=== PATIENT | male | born 1985 | race Hispanic/Latino ===

== ENCOUNTER 2016-10-21 18:58 | Emergency (ER) | payer OTHER ==
[2016-10-21] MEDS ORDERED: KETOROLAC 30 MG/ML VIAL (J1885) As Ordered ONE (19:33)
[2016-10-21] MEDS ORDERED: diphenhydrAMINE INJ 50MG/ML VIAL (J1200) As Ordered ONE (19:33)
[2016-10-21] MEDS ORDERED: methylPREDNISolone INJ 125 MG/2 ML VIAL (J2930) As Ordered ONE (19:33)
[2016-10-21 20:01] LABS: BASO % 0.4 % (0.0-1.0); EOS # 0.2 K/mm3 (0.0-0.50); EOS % 2.1 % (0.0-3.0); LARGE UNSTAINED CELL # 0.1 K/mm3 (0.0-0.4); LARGE UNSTAINED CELL % 1.2 % (0.0-4.0); LYMPH # 1.9 K/mm3 (1.5-6.5); LYMPH % 20.5 % (24.0-44.0); MEAN CORPUSCULAR HEMOGLOBIN 32.2 pg (27.0-33.0); MEAN CORPUSCULAR HGB CONC 36.1 g/dl (32.0-36.5); MEAN CORPUSCULAR VOLUME 89.1 fl (80.0-96.0); MONO # 0.6 K/mm3 (0.0-0.8); MONO % 6.1 % (0.0-5.0); NEUTROPHILS # 6.6 K/mm3 (1.8-7.7); NEUTROPHILS % 69.8 % (36.0-66.0); PLATELET COUNT, AUTOMATED 232 k/mm3 (150-450); RED CELL DISTRIBUTION WIDTH 12.3 % (11.5-14.5); WHITE BLOOD COUNT 9.5 K/mm3 (4.0-10.0)
[2016-10-21 20:16] LABS: ANION GAP 8 MEQ/L (8-16); BLOOD UREA NITROGEN 35 MG/DL (7-18); CALCIUM LEVEL 8.9 MG/DL (8.5-10.1); CARBON DIOXIDE LEVEL 29 MEQ/L (21-32); CHLORIDE LEVEL 101 MEQ/L (98-107); CREATININE FOR GFR 0.95 MG/DL (0.70-1.30); GLOMERULAR FILTRATION RATE > 60.0 (>60); GLUCOSE, FASTING 93 MG/DL (70-105); POTASSIUM SERUM 3.9 MEQ/L (3.5-5.1); SODIUM LEVEL 138 MEQ/L (136-145)
[2016-10-21 20:35] LABS: ERYTHROCYTE SEDIMENTATION RATE 2 mm/hr (0-15)
--- NOTE | 2016-10-21 20:57 | EDDOCDS ---
Nurse's Notes [facility] Name: Kathi Serrano Age: 30 yrs Sex: Male : 1985 Arrival Date: 10/21/2016 Time: 18:58 Bed I2 / M2 Private MD: BEATRICE Montero Diagnosis: Headache Presentation: 10/21 19:16 Presenting complaint: Patient states: chronic migraines, current migraine started 2 af2 months ago- got worse last night. reports nausea, photophobia. This patient has no additional risk factors. Adult Sepsis Screening: The patient does not have new or worsening altered mentation. Patient's respiratory rate is less than 22. Systolic blood pressure is greater than 100. Patient has a qSOFA score of 0- Negative Sepsis Screen. Suicide/Homicide risk assessment- the patient denies having any suicidal and/or homicidal ideations and does not present with any other emotional, behavioral or mental health complaints. Status: The patient is an active duty support services manager. Transition of care: patient was not received from another setting of care. 19:16 Acuity: MARICHUY Level 3 af2 19:16 Method Of Arrival: Walkin/Carried/Asstd af2 Triage Assessment: 19:20 Headache History: This headache is more severe than any previous headaches the patient af2 has experienced. General: Appears uncomfortable. Pain: Pain currently is 7 out of 10 on a pain scale. Pain began 2 months ago Also complains of photophobia. HIV screening NA for this visit Offered previously. Neurological: Reports headache photophobia. Historical: - Allergies: Ibuprofen (Hives); Aleve (Hives); - Home Meds: 1. acetaminophen 325 mg Oral tab 2 tabs every 4-6 hours 2. gabapentin 100 mg Oral cap Unknown as needed 3. Zanaflex 4 mg Oral cap Unknown as needed - PMHx: l4-l5 stenosis; - PSHx: Appendectomy; - Social history: Smoking status: Patient uses tobacco products, current every day smoker. No barriers to communication noted, The patient speaks fluent Hong Konger. - Family history: Not pertinent. - : The pt / caregiver states he / she is not on anticoagulants. Home medication list is obtained from the patient. - Exposure Risk Screening:: None identified. Screenin:44 Screening information is obtained from the patient. Fall risk: No risks identified. dsf Assistance ADL's: requires no assistance with activities of daily living. Abuse/DV Screen: The patient / caregiver reports he/she is: not in a situation that causes fear, pain or injury. Nutritional screening: No deficits noted. Advance Directives: Currently, there is no health care proxy. home support is adequate. Assessment: 19:49 Adult Sepsis Screening: The patient does not have new or worsening altered mentation. dsf Patient's respiratory rate is less than 22. Systolic blood pressure is greater than 100. Patient has a qSOFA score of 0- Negative Sepsis Screen. General: Appears uncomfortable, Behavior is appropriate for age, cooperative. Pain: Location: right side of head and forehead Pain currently is 6 out of 10 on a pain scale. Quality of pain is described as "exploding" Pain began 2 months ago. Neurological: Level of Consciousness is awake, alert. Cardiovascular: Capillary refill < 3 seconds. Respiratory: Airway is patent Respiratory effort is even, unlabored, Respiratory pattern is regular, symmetrical. Derm: Skin is pink, warm & dry. 19:50 GI: Abdomen is flat, Denies nausea. dsf 20:34 General: Appears in no apparent distress, Behavior is appropriate for age, cooperative. dsf Pain: Pain currently is 3 out of 10 on a pain scale. Neurological: Level of Consciousness is awake, alert. Cardiovascular: No deficits noted. Respiratory: No deficits noted. Derm: Skin is pink, warm & dry. Vital Signs: 19:01 BP 159 / 64; Pulse 75; Resp 16; Temp 96.6; Pulse Ox 97% ; Weight 74.84 kg; Height 5 ft. elp 7 in. (170.18 cm); Pain 6/10; 20:48 BP 134 / 72; Pulse 64; Resp 18; Temp 98.6; Pulse Ox 99% ; Pain 2/10; ajs 19:01 Body Mass Index 25.84 (74.84 kg, 170.18 cm) [facility] Vitals: 19:01 Log In Time: October 21, 2016 at 18:50. [facility] ED Course: 19:00 Patient visited by Janna Wheat PCA. elp 19:00 Patient moved to Waiting elp 19:01 BEATRICE Montero is Private Physician. elp 19:01 Patient visited by Patchen, Janna, WINDER FIXER. elp 19:01 Patient moved to Pre RCE elp 19:18 Triage Initiated af2 19:21 Patient visited by Hayley Kuhn RN. af2 19:23 Patient moved to Triage 2 cln 19:24 [facility] cc10 19:24 Haim Matta DO is Attending Physician. cc10 19:24 Patient visited by Hammad Suarez PA-C. cc10 19:28 Patient visited by Hammad Suarez PA-C. cc10 19:31 Laura Burger, BRENNA is Primary Nurse. mb9 19:31 Patient moved to I2 / M2 mb9 19:48 Sed Rate Sent. dsf 19:48 BMP Sent. dsf 19:48 CBC with Diff Sent. dsf 19:49 Inserted saline lock: 18 gauge in right antecubital area The patient tolerated the dsf procedure well. 20:35 Patient visited by Geovanna Osorio RN. dsf 20:42 Kylah [facility] is Referral Physician. cc10 20:44 The patient / caregiver is instructed regarding the plan of care and ED course. dsf 20:44 Discontinued lock intact, bleeding controlled, pressure dressing applied, No dsf redness/swelling at site. No procedures done that require assistance. 20:48 Patient visited by Jessica Hernandes. ajs 20:48 [facility] Payment Agreement was scanned into [employer] and attached to record. ks16 20:55 Patient name changed from Pierrepatrick\\S\\\\S\\Paderna\\S\\ to Pierrepatrick\\S\\ \\S\\Paderna. EDMS 20:56 Patient visited by Maritza Mckeon RN. ld5 Administered Medications: 19:48 Drug: diphenhydrAMINE 25 mg [diphenhydramine 50 mg/mL injection solution (0.5 mL)] dsf Route: IVP; Site: right antecubital; 20:35 Follow up: Response: Pain is decreased dsf 19:48 Drug: Solu-MEDROL 125 mg [Solu-Medrol 500 mg intravenous solution (125 mg)] Route: IVP; dsf Site: right antecubital; 19:49 Drug: NS 0.9% 1000 ml [sodium chloride 0.9 % injection solution] Route: IV; Rate: dsf bolus; Site: right antecubital; 20:43 Follow up: IV Status: Completed infusion; IV Intake: 1000ml dsf 19:51 Not Given (allergy): ketorolac 30 mg IVP once dsf Intake: 20:43 IV: 1000.00ml; Total: 1000.00ml. dsf Order Results: Lab Order: CBC with Diff; SPEC'M 10/21/16 19:46 Test: WHITE BLOOD COUNT; Value: 9.5; Range: 4.0-10.0; Units: K/mm3; Status: F Test: RED BLOOD COUNT; Value: 5.19; Range: 4.30-6.10; Units: M/mm3; Status: F Test: HEMOGLOBIN; Value: 16.7; Range: 14.0-18.0; Units: g/dl; Status: F Test: HEMATOCRIT; Value: 46.3; Range: 42.0-52.0; Units: %; Status: F Test: MEAN CORPUSCULAR VOLUME; Value: 89.1; Range: 80.0-96.0; Units: fl; Status: F Test: MEAN CORPUSCULAR HEMOGLOBIN; Value: 32.2; Range: 27.0-33.0; Units: pg; Status: F Test: MEAN CORPUSCULAR HGB CONC; Value: 36.1; Range: 32.0-36.5; Units: g/dl; Status: F Test: RED CELL DISTRIBUTION WIDTH; Value: 12.3; Range: 11.5-14.5; Units: %; Status: F Test: PLATELET COUNT, AUTOMATED; Value: 232; Range: 150-450; Units: k/mm3; Status: F Test: NEUTROPHILS %; Value: 69.8; Range: 36.0-66.0; Abnormal: Above high normal; Units: %; Status: F Test: LYMPH %; Value: 20.5; Range: 24.0-44.0; Abnormal: Below low normal; Units: %; Status: F Test: MONO %; Value: 6.1; Range: 0.0-5.0; Abnormal: Above high normal; Units: %; Status: F Test: EOS %; Value: 2.1; Range: 0.0-3.0; Units: %; Status: F Test: BASO %; Value: 0.4; Range: 0.0-1.0; Units: %; Status: F Test: LARGE UNSTAINED CELL %; Value: 1.2; Range: 0.0-4.0; Units: %; Status: F Test: NEUTROPHILS #; Value: 6.6; Range: 1.8-7.7; Units: K/mm3; Status: F Test: LYMPH #; Value: 1.9; Range: 1.5-6.5; Units: K/mm3; Status: F Test: MONO #; Value: 0.6; Range: 0.0-0.8; Units: K/mm3; Status: F Test: EOS #; Value: 0.2; Range: 0.0-0.50; Units: K/mm3; Status: F Test: BASO #; Value: 0.0; Range: 0.0-0.2; Units: K/mm3; Status: F Test: LARGE UNSTAINED CELL #; Value: 0.1; Range: 0.0-0.4; Units: K/mm3; Status: F Lab Order: [facility]; SPEC'M 10/21/16 19:46 Test: GLUCOSE, FASTING; Value: 93; Range: 70-105; Units: MG/DL; Status: F Test: BLOOD UREA NITROGEN; Value: 35; Range: 7-18; Abnormal: Above high normal; Units: MG/DL; Status: F Test: CREATININE FOR GFR; Value: 0.95; Range: 0.70-1.30; Units: MG/DL; Status: F Test: GLOMERULAR FILTRATION RATE; Value: > 60.0; Range: >60; Status: F Test: SODIUM LEVEL; Value: 138; Range: 136-145; Units: MEQ/L; Status: F Test: POTASSIUM SERUM; Value: 3.9; Range: 3.5-5.1; Units: MEQ/L; Status: F Test: CHLORIDE LEVEL; Value: 101; Range: 98-107; Units: MEQ/L; Status: F Test: CARBON DIOXIDE LEVEL; Value: 29; Range: 21-32; Units: MEQ/L; Status: F Test: ANION GAP; Value: 8; Range: 8-16; Units: MEQ/L; Status: F Test: CALCIUM LEVEL; Value: 8.9; Range: 8.5-10.1; Units: MG/DL; Status: F Test Note: ; Units are mL/min/1.73 m2 Chronic Kidney Disease Staging per NKF: Stage I & II GFR >=60 Normal to Mildly Decreased Stage III GFR 30-59 Moderately Decreased Stage IV GFR 15-29 Severely Decreased Stage V GFR <15 Very Little GFR Left ESRD GFR <15 on MUSICAL INSTRUMENT MECHANIC Lab Order: Sed Rate; [employer] 10/21/16 19:46 Test: ERYTHROCYTE SEDIMENTATION RATE; Value: 2; Range: 0-15; Units: mm/hr; Status: F Outcome: 20:42 Discharge ordered by Provider. cc10 20:44 No special radiology studies were completed. Property sent home with patient. dsf 20:45 Discharge Assessment: Patient awake, alert and oriented x 3. No cognitive and/or dsf functional deficits noted. Patient verbalized understanding of disposition instructions. patient administered narcotics - no. The following High Risk Discharge criteria are identified: None. Discharged to home ambulatory. Condition: stable. Discharge instructions given to patient, Instructed on discharge instructions, follow up and referral plans. Demonstrated understanding of instructions, Pt was receptive of discharge instructions/ teaching. 20:55 Prescriptions given X 1. ld5 20:56 Patient left the ED. ld5 Signatures: Dispatcher [employer] EDMS Maritza Mckeon RN RN ld5 Geovanna Osorio RN RN dsf Jessica Hernandes Erin, WINDER FIXER WINDER FIXER elp Hammad Suarez, PA-C PA-C cc10 Constantine Isabel RN RN mb9 Hayley Kuhn RN RN af2 Laurie Elias, Reg Reg ks16 Danette, Estela, WINDER FIXER WINDER FIXER cln MTDD
--- NOTE | 2016-10-21 20:57 | EDDOCDS ---
Physician Documentation [facility] Name: Kathi Serrano Age: 30 yrs Sex: Male : 1985 Arrival Date: 10/21/2016 Time: 18:58 Bed I2 / M2 Private MD: BEATRICE Montero Disposition: 10/21/16 20:42 Discharged to Home/Self Care. Impression: Headache. - Condition is Stable. - Discharge Instructions: Migraine Headache. - Prescriptions for Ultram 50 mg Oral Tablet - take 1 tablet by ORAL route every 6 hours As needed MDD: 4 tabs; 12 tablet. - Medication Reconciliation form. - Follow up: Emergency Department; When: As needed. Follow up: BEATRICE Montero; When: Call to arrange an appointment; Reason: Wound/Symptom Recheck, Recheck today's complaints, Worsening of conditions, Continuance of care. - Problem is chronic. - Symptoms have improved. Historical: - Allergies: Ibuprofen (Hives); Aleve (Hives); - Home Meds: 1. acetaminophen 325 mg Oral tab 2 tabs every 4-6 hours 2. gabapentin 100 mg Oral cap Unknown as needed 3. Zanaflex 4 mg Oral cap Unknown as needed - PMHx: l4-l5 stenosis; - PSHx: Appendectomy; - Social history: Smoking status: Patient uses tobacco products, current every day smoker. No barriers to communication noted, The patient speaks fluent Niuean. - Family history: Not pertinent. - : The pt / caregiver states he / she is not on anticoagulants. Home medication list is obtained from the patient. - Exposure Risk Screening:: None identified. Vital Signs: 10/21 19:01 BP 159 / 64; Pulse 75; Resp 16; Temp 96.6; Pulse Ox 97% ; Weight 74.84 kg / 164.99 lbs; elp Height 5 ft. 7 in. (170.18 cm); Pain 6/10; 20:48 BP 134 / 72; Pulse 64; Resp 18; Temp 98.6; Pulse Ox 99% ; Pain 2/10; ajs 19:01 Body Mass Index 25.84 (74.84 kg, 170.18 cm) elp MDM: 19:29 IV Saline Lock ordered. cc10 19:29 diphenhydrAMINE 25 mg IVP once ordered. cc10 19:29 NS 0.9% 1000 ml IV at bolus once ordered. cc10 19:29 ketorolac 30 mg IVP once ordered. cc10 19:29 Solu-MEDROL 125 mg IVP once ordered. cc10 19:30 CBC with Diff Ordered. EDMS 19:30 BMP Ordered. EDMS 19:30 Sed Rate Ordered. EDMS 20:38 CBC with Diff Reviewed. cc10 20:38 BMP Reviewed. cc10 20:38 Sed Rate Reviewed. cc10 20:47 Financial registration complete. ks16 20:48 [facility] Payment Agreement was scanned into [employer] and attached to record. [email or web address] Administered Medications: 19:48 Drug: diphenhydrAMINE 25 mg [diphenhydramine 50 mg/mL injection solution (0.5 mL)] dsf Route: IVP; Site: right antecubital; 20:35 Follow up: Response: Pain is decreased dsf 19:48 Drug: Solu-MEDROL 125 mg [Solu-Medrol 500 mg intravenous solution (125 mg)] Route: IVP; dsf Site: right antecubital; 19:49 Drug: NS 0.9% 1000 ml [sodium chloride 0.9 % injection solution] Route: IV; Rate: dsf bolus; Site: right antecubital; 20:43 Follow up: IV Status: Completed infusion; IV Intake: 1000ml dsf 19:51 Not Given (allergy): ketorolac 30 mg IVP once dsf Signatures: Dispatcher [employer] EDMS Maritza Mckeon RN RN ld5 Geovanna Osorio RN RN dsf Hammad Suarez PAChristopher PA-C cc10 Hayley Kuhn RN RN af2 Laurie Elias, Reg Reg ks16 The chart was reviewed and I authenticate all verbal orders and agree with the evaluation and treatment provided.Attachments: 20:48 [facility] Payment Agreement ks16 MTDD
--- NOTE | 2016-10-23 21:57 | EDDOCDS ---
Nurse's Notes [facility] Name: Kathi Serrano Age: 30 yrs Sex: Male : 1985 Arrival Date: 10/21/2016 Time: 18:58 Bed I2 / M2 Private MD: BEATRICE Montero Diagnosis: Headache Presentation: 10/21 19:16 Presenting complaint: Patient states: chronic migraines, current migraine started 2 af2 months ago- got worse last night. reports nausea, photophobia. This patient has no additional risk factors. Adult Sepsis Screening: The patient does not have new or worsening altered mentation. Patient's respiratory rate is less than 22. Systolic blood pressure is greater than 100. Patient has a qSOFA score of 0- Negative Sepsis Screen. Suicide/Homicide risk assessment- the patient denies having any suicidal and/or homicidal ideations and does not present with any other emotional, behavioral or mental health complaints. Status: The patient is an active duty veterans services specialist. Transition of care: patient was not received from another setting of care. 19:16 Acuity: MARICHUY Level 3 af2 19:16 Method Of Arrival: Walkin/Carried/Asstd af2 Triage Assessment: 19:20 Headache History: This headache is more severe than any previous headaches the patient af2 has experienced. General: Appears uncomfortable. Pain: Pain currently is 7 out of 10 on a pain scale. Pain began 2 months ago Also complains of photophobia. HIV screening NA for this visit Offered previously. Neurological: Reports headache photophobia. Historical: - Allergies: Ibuprofen (Hives); Aleve (Hives); - Home Meds: 1. acetaminophen 325 mg Oral tab 2 tabs every 4-6 hours 2. gabapentin 100 mg Oral cap Unknown as needed 3. Zanaflex 4 mg Oral cap Unknown as needed - PMHx: l4-l5 stenosis; - PSHx: Appendectomy; - Social history: Smoking status: Patient uses tobacco products, current every day smoker. No barriers to communication noted, The patient speaks fluent Israeli. - Family history: Not pertinent. - : The pt / caregiver states he / she is not on anticoagulants. Home medication list is obtained from the patient. - Exposure Risk Screening:: None identified. Screenin:44 Screening information is obtained from the patient. Fall risk: No risks identified. dsf Assistance ADL's: requires no assistance with activities of daily living. Abuse/DV Screen: The patient / caregiver reports he/she is: not in a situation that causes fear, pain or injury. Nutritional screening: No deficits noted. Advance Directives: Currently, there is no health care proxy. home support is adequate. Assessment: 19:49 Adult Sepsis Screening: The patient does not have new or worsening altered mentation. dsf Patient's respiratory rate is less than 22. Systolic blood pressure is greater than 100. Patient has a qSOFA score of 0- Negative Sepsis Screen. General: Appears uncomfortable, Behavior is appropriate for age, cooperative. Pain: Location: right side of head and forehead Pain currently is 6 out of 10 on a pain scale. Quality of pain is described as "exploding" Pain began 2 months ago. Neurological: Level of Consciousness is awake, alert. Cardiovascular: Capillary refill < 3 seconds. Respiratory: Airway is patent Respiratory effort is even, unlabored, Respiratory pattern is regular, symmetrical. Derm: Skin is pink, warm & dry. 19:50 GI: Abdomen is flat, Denies nausea. dsf 20:34 General: Appears in no apparent distress, Behavior is appropriate for age, cooperative. dsf Pain: Pain currently is 3 out of 10 on a pain scale. Neurological: Level of Consciousness is awake, alert. Cardiovascular: No deficits noted. Respiratory: No deficits noted. Derm: Skin is pink, warm & dry. Vital Signs: 19:01 BP 159 / 64; Pulse 75; Resp 16; Temp 96.6; Pulse Ox 97% ; Weight 74.84 kg; Height 5 ft. elp 7 in. (170.18 cm); Pain 6/10; 20:48 BP 134 / 72; Pulse 64; Resp 18; Temp 98.6; Pulse Ox 99% ; Pain 2/10; ajs 19:01 Body Mass Index 25.84 (74.84 kg, 170.18 cm) [facility] Vitals: 19:01 Log In Time: October 21, 2016 at 18:50. [facility] ED Course: 19:00 Patient visited by Janna Wheat PCA. elp 19:00 Patient moved to Waiting elp 19:01 BEATRICE Montero is Private Physician. elp 19:01 Patient visited by Patchen, Janna, GRAPHIC PRODUCTION ARTIST. elp 19:01 Patient moved to Pre RCE elp 19:18 Triage Initiated af2 19:21 Patient visited by Hayley Kuhn RN. af2 19:23 Patient moved to Triage 2 cln 19:24 Hammad Suarez [facility]-C [facility]. cc10 19:24 Haim Matta DO is Attending Physician. cc10 19:24 Patient visited by Hammad Suarez PA-C. cc10 19:28 Patient visited by Hammad Suarez PA-C. cc10 19:31 Laura Burger, BRENNA is Primary Nurse. mb9 19:31 Patient moved to I2 / M2 mb9 19:48 Sed Rate Sent. dsf 19:48 BMP Sent. dsf 19:48 CBC with Diff Sent. dsf 19:49 Inserted saline lock: 18 gauge in right antecubital area The patient tolerated the dsf procedure well. 20:35 Patient visited by Geovanna Osorio RN. dsf 20:42 Kylah [facility] is Referral Physician. cc10 20:44 The patient / caregiver is instructed regarding the plan of care and ED course. dsf 20:44 Discontinued lock intact, bleeding controlled, pressure dressing applied, No dsf redness/swelling at site. No procedures done that require assistance. 20:48 Patient visited by Jessica Hernandes. ajs 20:48 [facility] Payment Agreement was scanned into [employer] and attached to record. ks16 20:55 Patient name changed from Pierrepatrick\\S\\\\S\\Paderna\\S\\ to Pierrepatrick\\S\\ \\S\\Paderna. EDMS 20:56 Patient visited by Maritza Mckeon RN. ld5 10/22 11:21 T-Sheet-- Draft Copy was scanned into [employer] and attached to record. gb Administered Medications: 10/21 19:48 Drug: diphenhydrAMINE 25 mg [diphenhydramine 50 mg/mL injection solution (0.5 mL)] dsf Route: IVP; Site: right antecubital; 20:35 Follow up: Response: Pain is decreased dsf 19:48 Drug: Solu-MEDROL 125 mg [Solu-Medrol 500 mg intravenous solution (125 mg)] Route: IVP; dsf Site: right antecubital; 19:49 Drug: NS 0.9% 1000 ml [sodium chloride 0.9 % injection solution] Route: IV; Rate: dsf bolus; Site: right antecubital; 20:43 Follow up: IV Status: Completed infusion; IV Intake: 1000ml dsf 19:51 Not Given (allergy): ketorolac 30 mg IVP once dsf Intake: 20:43 IV: 1000.00ml; Total: 1000.00ml. dsf Order Results: Lab Order: CBC with Diff; SPEC'M 10/21/16 19:46 Test: WHITE BLOOD COUNT; Value: 9.5; Range: 4.0-10.0; Units: K/mm3; Status: F Test: RED BLOOD COUNT; Value: 5.19; Range: 4.30-6.10; Units: M/mm3; Status: F Test: HEMOGLOBIN; Value: 16.7; Range: 14.0-18.0; Units: g/dl; Status: F Test: HEMATOCRIT; Value: 46.3; Range: 42.0-52.0; Units: %; Status: F Test: MEAN CORPUSCULAR VOLUME; Value: 89.1; Range: 80.0-96.0; Units: fl; Status: F Test: MEAN CORPUSCULAR HEMOGLOBIN; Value: 32.2; Range: 27.0-33.0; Units: pg; Status: F Test: MEAN CORPUSCULAR HGB CONC; Value: 36.1; Range: 32.0-36.5; Units: g/dl; Status: F Test: RED CELL DISTRIBUTION WIDTH; Value: 12.3; Range: 11.5-14.5; Units: %; Status: F Test: PLATELET COUNT, AUTOMATED; Value: 232; Range: 150-450; Units: k/mm3; Status: F Test: NEUTROPHILS %; Value: 69.8; Range: 36.0-66.0; Abnormal: Above high normal; Units: %; Status: F Test: LYMPH %; Value: 20.5; Range: 24.0-44.0; Abnormal: Below low normal; Units: %; Status: F Test: MONO %; Value: 6.1; Range: 0.0-5.0; Abnormal: Above high normal; Units: %; Status: F Test: EOS %; Value: 2.1; Range: 0.0-3.0; Units: %; Status: F Test: BASO %; Value: 0.4; Range: 0.0-1.0; Units: %; Status: F Test: LARGE UNSTAINED CELL %; Value: 1.2; Range: 0.0-4.0; Units: %; Status: F Test: NEUTROPHILS #; Value: 6.6; Range: 1.8-7.7; Units: K/mm3; Status: F Test: LYMPH #; Value: 1.9; Range: 1.5-6.5; Units: K/mm3; Status: F Test: MONO #; Value: 0.6; Range: 0.0-0.8; Units: K/mm3; Status: F Test: EOS #; Value: 0.2; Range: 0.0-0.50; Units: K/mm3; Status: F Test: BASO #; Value: 0.0; Range: 0.0-0.2; Units: K/mm3; Status: F Test: LARGE UNSTAINED CELL #; Value: 0.1; Range: 0.0-0.4; Units: K/mm3; Status: F Lab Order: [facility]; SPEC'M 10/21/16 19:46 Test: GLUCOSE, FASTING; Value: 93; Range: 70-105; Units: MG/DL; Status: F Test: BLOOD UREA NITROGEN; Value: 35; Range: 7-18; Abnormal: Above high normal; Units: MG/DL; Status: F Test: CREATININE FOR GFR; Value: 0.95; Range: 0.70-1.30; Units: MG/DL; Status: F Test: GLOMERULAR FILTRATION RATE; Value: > 60.0; Range: >60; Status: F Test: SODIUM LEVEL; Value: 138; Range: 136-145; Units: MEQ/L; Status: F Test: POTASSIUM SERUM; Value: 3.9; Range: 3.5-5.1; Units: MEQ/L; Status: F Test: CHLORIDE LEVEL; Value: 101; Range: 98-107; Units: MEQ/L; Status: F Test: CARBON DIOXIDE LEVEL; Value: 29; Range: 21-32; Units: MEQ/L; Status: F Test: ANION GAP; Value: 8; Range: 8-16; Units: MEQ/L; Status: F Test: CALCIUM LEVEL; Value: 8.9; Range: 8.5-10.1; Units: MG/DL; Status: F Test Note: ; Units are mL/min/1.73 m2 Chronic Kidney Disease Staging per NKF: Stage I & II GFR >=60 Normal to Mildly Decreased Stage III GFR 30-59 Moderately Decreased Stage IV GFR 15-29 Severely Decreased Stage V GFR <15 Very Little GFR Left ESRD GFR <15 on WAXING MACHINE OPERATOR Lab Order: Sed Rate; SPEC'M 10/21/16 19:46 Test: ERYTHROCYTE SEDIMENTATION RATE; Value: 2; Range: 0-15; Units: mm/hr; Status: F Outcome: 20:42 Discharge ordered by Provider. cc10 20:44 No special radiology studies were completed. Property sent home with patient. dsf 20:45 Discharge Assessment: Patient awake, alert and oriented x 3. No cognitive and/or dsf functional deficits noted. Patient verbalized understanding of disposition instructions. patient administered narcotics - no. The following High Risk Discharge criteria are identified: None. Discharged to home ambulatory. Condition: stable. Discharge instructions given to patient, Instructed on discharge instructions, follow up and referral plans. Demonstrated understanding of instructions, Pt was receptive of discharge instructions/ teaching. 20:55 Prescriptions given X 1. ld5 20:56 Patient left the ED. ld5 Signatures: Dispatcher [employer] EDMS Jocelyn Flannery, Reg Reg gb Maritza MckeonRN RN ld5 Geovanna Osorio RN RN dsf Jessica Hernandes Erin, GRAPHIC PRODUCTION ARTIST GRAPHIC PRODUCTION ARTIST elp Hammad Suarez, PA-Aguilar PA-C cc10 Constantine Isabel,BRENNA RN mb9 Hayley Kuhn RN RN af2 Laurie Elias, Reg Reg ks16 Estela Samaniego, GRAPHIC PRODUCTION ARTIST GRAPHIC PRODUCTION ARTIST cln Chart Complete MTDD
--- NOTE | 2016-10-23 21:57 | EDDOCDS ---
Physician Documentation [facility] Name: Kathi Serrano Age: 30 yrs Sex: Male : 1985 Arrival Date: 10/21/2016 Time: 18:58 Bed I2 / M2 Private MD: BEATRICE Montero Disposition: 10/21/16 20:42 Discharged to Home/Self Care. Impression: Headache. - Condition is Stable. - Discharge Instructions: Migraine Headache. - Prescriptions for Ultram 50 mg Oral Tablet - take 1 tablet by ORAL route every 6 hours As needed MDD: 4 tabs; 12 tablet. - Medication Reconciliation form. - Follow up: Emergency Department; When: As needed. Follow up: BEATRICE Montero; When: Call to arrange an appointment; Reason: Wound/Symptom Recheck, Recheck today's complaints, Worsening of conditions, Continuance of care. - Problem is chronic. - Symptoms have improved. Historical: - Allergies: Ibuprofen (Hives); Aleve (Hives); - Home Meds: 1. acetaminophen 325 mg Oral tab 2 tabs every 4-6 hours 2. gabapentin 100 mg Oral cap Unknown as needed 3. Zanaflex 4 mg Oral cap Unknown as needed - PMHx: l4-l5 stenosis; - PSHx: Appendectomy; - Social history: Smoking status: Patient uses tobacco products, current every day smoker. No barriers to communication noted, The patient speaks fluent Swedish. - Family history: Not pertinent. - : The pt / caregiver states he / she is not on anticoagulants. Home medication list is obtained from the patient. - Exposure Risk Screening:: None identified. Vital Signs: 10/21 19:01 BP 159 / 64; Pulse 75; Resp 16; Temp 96.6; Pulse Ox 97% ; Weight 74.84 kg / 164.99 lbs; elp Height 5 ft. 7 in. (170.18 cm); Pain 6/10; 20:48 BP 134 / 72; Pulse 64; Resp 18; Temp 98.6; Pulse Ox 99% ; Pain 2/10; ajs 19:01 Body Mass Index 25.84 (74.84 kg, 170.18 cm) elp MDM: 19:29 IV Saline Lock ordered. cc10 19:29 diphenhydrAMINE 25 mg IVP once ordered. cc10 19:29 NS 0.9% 1000 ml IV at bolus once ordered. cc10 19:29 ketorolac 30 mg IVP once ordered. cc10 19:29 Solu-MEDROL 125 mg IVP once ordered. cc10 19:30 CBC with Diff Ordered. EDMS 19:30 BMP Ordered. EDMS 19:30 Sed Rate Ordered. EDMS 20:38 CBC with Diff Reviewed. cc10 20:38 BMP Reviewed. cc10 20:38 Sed Rate Reviewed. cc10 20:47 Financial registration complete. sd16 20:48 [facility] Payment Agreement was scanned into [employer] and attached to record. [facility] 10/22 11:21 T-Sheet-- Draft Copy was scanned into [employer] and attached to record. gb Administered Medications: 10/21 19:48 Drug: diphenhydrAMINE 25 mg [diphenhydramine 50 mg/mL injection solution (0.5 mL)] dsf Route: IVP; Site: right antecubital; 20:35 Follow up: Response: Pain is decreased dsf 19:48 Drug: Solu-MEDROL 125 mg [Solu-Medrol 500 mg intravenous solution (125 mg)] Route: IVP; dsf Site: right antecubital; 19:49 Drug: NS 0.9% 1000 ml [sodium chloride 0.9 % injection solution] Route: IV; Rate: dsf bolus; Site: right antecubital; 20:43 Follow up: IV Status: Completed infusion; IV Intake: 1000ml dsf 19:51 Not Given (allergy): ketorolac 30 mg IVP once dsf Signatures: Dispatcher [employer] EDMS Jocelyn Flannery, Reg Reg gb Maritza Mckeon,RN RN ld5 Geovanna Osorio RN RN dsf Hammad Suarez, PA-C PAKikoC cc10 Hayley KuhnRN RN af2 Laurie Elias, Reg Reg ks16 The chart was reviewed and I authenticate all verbal orders and agree with the evaluation and treatment provided.Attachments: 20:48 [facility] Payment Agreement 10/22 11:21 T-Sheet-- Draft Copy gb Chart Complete MTDD
--- NOTE | 2016-10-23 21:57 | EDDOCDS ---
Physician Documentation [facility] Name: Kathi Serrano Age: 30 yrs Sex: Male : 1985 Arrival Date: 10/21/2016 Time: 18:58 Bed I2 / M2 Private MD: BEATRICE Montero Disposition: 10/21/16 20:42 Discharged to Home/Self Care. Impression: Headache. - Condition is Stable. - Discharge Instructions: Migraine Headache. - Prescriptions for Ultram 50 mg Oral Tablet - take 1 tablet by ORAL route every 6 hours As needed MDD: 4 tabs; 12 tablet. - Medication Reconciliation form. - Follow up: Emergency Department; When: As needed. Follow up: BEATRICE Montero; When: Call to arrange an appointment; Reason: Wound/Symptom Recheck, Recheck today's complaints, Worsening of conditions, Continuance of care. - Problem is chronic. - Symptoms have improved. Historical: - Allergies: Ibuprofen (Hives); Aleve (Hives); - Home Meds: 1. acetaminophen 325 mg Oral tab 2 tabs every 4-6 hours 2. gabapentin 100 mg Oral cap Unknown as needed 3. Zanaflex 4 mg Oral cap Unknown as needed - PMHx: l4-l5 stenosis; - PSHx: Appendectomy; - Social history: Smoking status: Patient uses tobacco products, current every day smoker. No barriers to communication noted, The patient speaks fluent Irish. - Family history: Not pertinent. - : The pt / caregiver states he / she is not on anticoagulants. Home medication list is obtained from the patient. - Exposure Risk Screening:: None identified. Vital Signs: 10/21 19:01 BP 159 / 64; Pulse 75; Resp 16; Temp 96.6; Pulse Ox 97% ; Weight 74.84 kg / 164.99 lbs; elp Height 5 ft. 7 in. (170.18 cm); Pain 6/10; 20:48 BP 134 / 72; Pulse 64; Resp 18; Temp 98.6; Pulse Ox 99% ; Pain 2/10; ajs 19:01 Body Mass Index 25.84 (74.84 kg, 170.18 cm) elp MDM: 19:29 IV Saline Lock ordered. cc10 19:29 diphenhydrAMINE 25 mg IVP once ordered. cc10 19:29 NS 0.9% 1000 ml IV at bolus once ordered. cc10 19:29 ketorolac 30 mg IVP once ordered. cc10 19:29 Solu-MEDROL 125 mg IVP once ordered. cc10 19:30 CBC with Diff Ordered. EDMS 19:30 BMP Ordered. EDMS 19:30 Sed Rate Ordered. EDMS 20:38 CBC with Diff Reviewed. cc10 20:38 BMP Reviewed. cc10 20:38 Sed Rate Reviewed. cc10 20:47 Financial registration complete. de16 20:48 COUNTS INCLUDE 234 BEDS AT THE [facility] Payment Agreement was scanned into [employer] and attached to record. [facility] 10/22 11:21 T-Sheet-- Draft Copy was scanned into [employer] and attached to record. gb Administered Medications: 10/21 19:48 Drug: diphenhydrAMINE 25 mg [diphenhydramine 50 mg/mL injection solution (0.5 mL)] dsf Route: IVP; Site: right antecubital; 20:35 Follow up: Response: Pain is decreased dsf 19:48 Drug: Solu-MEDROL 125 mg [Solu-Medrol 500 mg intravenous solution (125 mg)] Route: IVP; dsf Site: right antecubital; 19:49 Drug: NS 0.9% 1000 ml [sodium chloride 0.9 % injection solution] Route: IV; Rate: dsf bolus; Site: right antecubital; 20:43 Follow up: IV Status: Completed infusion; IV Intake: 1000ml dsf 19:51 Not Given (allergy): ketorolac 30 mg IVP once dsf Signatures: Dispatcher [employer] EDMS Jocelyn Flannery, Reg Reg gb Maritza Mckeon,RN RN ld5 Geovanna Osorio RN RN dsf Hammad Suarez, PA-C PAKikoC cc10 Hayley KuhnRN RN af2 Laurie Elias, Reg Reg ks16 The chart was reviewed and I authenticate all verbal orders and agree with the evaluation and treatment provided.Attachments: 20:48 COUNTS INCLUDE 234 BEDS AT THE [facility] Payment Agreement 10/22 11:21 T-Sheet-- Draft Copy gb Chart Complete MTDD
== END 2016-10-21 20:56 | disposition home or self-care (01) ==
LOC: M ED 18:58
DX: R51 Headache (principal); M48.06 Spinal stenosis, lumbar region; F17.210 Nicotine dependence, cigarettes, uncomplicated; Z79.899 Other long term (current) drug therapy; Z88.6 Allergy status to analgesic agent
CPT/HCPCS: 36415; 80048; 85025; 85652; 96361; 96374; 96375; 99284; J1200; J1885; J2930

== ENCOUNTER → 2017-01-06 | Outpatient (CLI) | payer OTHER ==
--- NOTE | 2017-01-10 14:45 | SLEEPCENT ---
DATE OF PROCEDURE: 01/06/2017 REQUESTING PROVIDER: Val Feliz NP INTERPRETATION: Nocturnal polysomnography was performed due to concern for obstructive sleep apnea syndrome in this patient with a history of excessive somnolence. 6 hours and 59 minutes of data were reviewed. There were 354 minutes of sleep identified. Sleep latency was delayed at 32 minutes. Rapid eye movement (REM) latency was mildly delayed at 115 minutes. Sleep architecture showed some fragmentation. There were three REM periods. Overall sleep efficiency was 85%. The patient's EKG showed a sinus rhythm with an average heart rate of 54 beats per minute. Electroencephalogram (EEG) showed normal waveforms for awake and sleep. There were only three respiratory events identified of 10 seconds in duration or greater. Snoring was noted. Respiratory related arousals occurred 0.7 times per hour. There was significant limb activity noted over the course of the study with a limb movement arousal index of 10.3. IMPRESSION: Periodic limb movement disorder (G47.61). Limb movement arousal index of 10.3. Snoring. RECOMMENDATIONS: Interventions to reduce the frequency of arousals from limb activity should improve the quality of this patient's sleep.
== END ==
LOC: M SLEEP 19:30
PROVIDERS: ATTEND Nurse Practitioner Adult Health
DX: G47.61 Periodic limb movement disorder (principal); R06.83 Snoring